=== PATIENT | male | born 1960 | race Two or more races ===

== ENCOUNTER 2024-06-10 12:21 | Emergency (ER) | payer OTHER ==
[~2024-06-10] VITALS: Ht 182.9 cm; Wt 82.6 kg
[2024-06-10 12:47] LABS: BASOPHILS % (AUTO) 0.2 % (0.0-2.0); EOSINOPHILS # (AUTO) 0.2 K/uL (0.0-0.7); EOSINOPHILS % (AUTO) 2.2 % (0.0-6.0); HEMATOCRIT 28 % (39-51); HEMOGLOBIN 9.1 g/dL (13.5-17.5); LYMPHOCYTES # (AUTO) 1.7 K/uL (0.8-4.8); MEAN CORPUSCULAR HEMOGLOBIN 27 PG (26.0-33.0); MEAN CORPUSCULAR HGB CONC 32 g/dl (31.0-36.0); MEAN CORPUSCULAR VOLUME 85 fL (80-96); MONOCYTES # (AUTO) 0.6 K/uL (0.1-1.30); MONOCYTES % (AUTO) 8.1 % (2.0-12.0); NEUTROPHILS % (AUTO) 66.5 % (43.0-81.0); PLATELET COUNT (AUTO) 447 K/uL (150-450); RED BLOOD CELL COUNT(AUTO) 3.32 MIL/uL (4.5-6.0); RED CELL DISTRIBUTION WIDTH 18.6 % (11.5-15.0); WHITE BLOOD COUNT (AUTO) 7.6 K/uL (4.3-11.0)
[2024-06-10 13:06] LABS: CALCIUM, SERUM 9.4 mg/dL (8.5-10.1); CREATININE 5.5 mg/dL (0.6-1.3); POTASSIUM 4.8 mmol/L (3.5-5.1)
[2024-06-10] MEDS ORDERED: LIDO700A30 TP (13:17)
[2024-06-10] MEDS ORDERED: ALLO100T PO (13:17)
[2024-06-10] MEDS ORDERED: CARV25TA2 PO (13:17)
[2024-06-10] MEDS ORDERED: AMLO-213 PO (13:17)
[2024-06-10] MEDS ORDERED: CYAN-51 PO (13:17)
[2024-06-10] MEDS ORDERED: HEPA50008 SQ (13:17)
[2024-06-10] MEDS ORDERED: ALPR1TAB7 PO (13:17)
[2024-06-10] MEDS ORDERED: BISA10SU11 RC (13:17)
[2024-06-10] MEDS ORDERED: QUET25TA PO (13:17)
[2024-06-10] MEDS ORDERED: MELA3TAB41 PO (13:17)
[2024-06-10] MEDS ORDERED: ACET325T53 PO (13:17)
[2024-06-10] MEDS ORDERED: MAGN400O6 PO (13:17)
[2024-06-10] MEDS ORDERED: INSU100I26 SQ (13:17)
[2024-06-10] MEDS ORDERED: ACET-637 PO (13:17)
[2024-06-10] MEDS ORDERED: LOSA25TA27 PO (13:17)
[2024-06-10] MEDS ORDERED: HYDR-3972 PO (13:17)
[2024-06-10] MEDS ORDERED: NA P133E RC (13:17)
[2024-06-10] MEDS ORDERED: ASPI-1169 PO (13:17)
[2024-06-10 17:45] VITALS: BP 151/88; TEMP 97.2; O2SAT 100
== END 2024-06-10 18:05 | disposition short-term general hospital (02) ==
LOC: ER 12:27
DX: E11.22 Type 2 diabetes mellitus with diabetic chronic kidney disease (principal); N18.6 End stage renal disease; R03.0 Elevated blood-pressure reading, without diagnosis of hypertension; Z99.2 Dependence on renal dialysis
CPT/HCPCS: 36415; 71045-TC; 80048-TC; 85025-TC